=== PATIENT | male | born 1955 | race Asian ===

== ENCOUNTER 2018-03-23 07:10 | Day surgery (SDC) | payer OTHER ==
[~2018-03-23] VITALS: Ht 177.8 cm; Wt 72.6 kg
[2018-03-23 07:28] VITALS: BP 130/63
[2018-03-23 09:19] VITALS: BP 96/68
== END 2018-03-23 10:00 | disposition home or self-care (01) ==
LOC: GI 07:10 → OR 08:00 → GI 10:00
PROVIDERS: Internal Medicine Gastroenterology
PROC: 0DBH8ZZ Excision of Cecum, Via Natural or Artificial Opening Endoscopic (ICD-10-PCS; principal; 2018-03-23 08:00)
DX: Z80.0 Family history of malignant neoplasm of digestive organs (principal); D12.0 Benign neoplasm of cecum; Q43.8 Other specified congenital malformations of intestine
CPT/HCPCS: 45378; J1200; J1610; J2250; J2310; J3010; J3490